=== PATIENT | female | born 1960 ===

== ENCOUNTER 2016-04-25 13:49 | Outpatient (CLI) | payer OTHER ==
--- NOTE | 2016-04-27 09:01 | Mammography Report ---
DIAGNOSTIC RIGHT MAMMOGRAM AND TARGETED RIGHT BREAST ULTRASOUND: HISTORY: Recall for right asymmetry. FINDINGS: On the spot compression image in the CC projection and on the 90 degree medial lateral view, there is no evidence of a mass or architectural distortion. The breast parenchyma is very dense, however. Sonographic evaluation of the entire lateral half of the right breast demonstrates no evidence of cystic or solid mass. IMPRESSION: No suspicious imaging findings. BI-RADS CATEGORY: 2 = Benign ACR BI-RADS MAMMOGRAPHIC CODES: 0 = Needs additional imaging evaluation; 1 = Negative; 2 = Benign; 3 = Probably benign; 4 = Suspicious; 5 = Malignant; 6 = Known biopsy-proven malignancy COMMENT: 1. Dense breast tissue, i.e., adenosis, fibrocystic changes, etc., may obscure an underlying neoplasm. 2. Approximately 10% of cancers are not detected with mammography. 3. A negative mammography report should not delay biopsy if a clinically suspicious mass is present. RECOMMENDATION: Annual screening.
== END 2016-04-25 13:50 | disposition home or self-care (01) ==
LOC: SPVWC 13:49
PROVIDERS: ATTEND Family Medicine
DX: R92.8 Other abnormal and inconclusive findings on diagnostic imaging of breast (principal)
CPT/HCPCS: 76642; G0206